=== PATIENT | male | born 1960 | race Caucasian/White ===

== ENCOUNTER 2023-11-21 09:27 | Outpatient (CLI) | payer OTHER ==
[2023-11-21 11:48] LABS: Anion Gap 14 mmol/L (10-20); BUN (Urea Nitrogen) 16 mg/dL (8.4-25.7); Calc. Creatinine Clearance 0 mL/min (70-130); Calcium 9.1 mg/dL (7.8-10.44); Carbon Dioxide 25 mmol/L (23-31); Chloride 95 mmol/L (98-107); Estimated GFR 58; Glucose 90 mg/dL (80-115); Potassium 5.3 mmol/L (3.5-5.1); Sodium 129 mmol/L (136-145)
== END 2023-11-21 09:28 | disposition home or self-care (01) ==
LOC: LABBT 09:27
PROVIDERS: ATTEND Neurological Surgery
DX: Z01.818 Encounter for other preprocedural examination (principal); M54.16 Radiculopathy, lumbar region
CPT/HCPCS: 80048; 93005; 93010

== ENCOUNTER 2023-11-22 09:22 | Day surgery (SDC) | payer OTHER ==
[2023-11-21 10:05] VITALS: BMI 25.0
[2023-11-22] MEDS ORDERED: CEFAZOLIN 2 GM VIAL ONE ×2 (10:04→13:52)
[2023-11-22] MEDS ORDERED: Sodium Chloride 0.9% 100 ML ONE ×2 (10:04→13:52)
[2023-11-22] MEDS ORDERED: Bupivacaine PF 0.5% 30 ML VIAL ONE (10:05)
[2023-11-22] MEDS ORDERED: Thrombin 5000 UNITS/5 ML VIAL ONE (10:05)
[2023-11-22] MEDS ORDERED: EPINEPHrine 1 MG/ML VIAL ONE (10:05)
[2023-11-22 10:42] LABS: Calcium 9.3 mg/dL (7.8-10.44); Chloride 99 mmol/L (98-107); Glucose 99 mg/dL (80-115); Potassium 4.7 mmol/L (3.5-5.1); Sodium 133 mmol/L (136-145)
[2023-11-22 10:43] LABS: Anion Gap 15 mmol/L (10-20); BUN (Urea Nitrogen) 17 mg/dL (8.4-25.7); Calc. Creatinine Clearance 66 mL/min (70-130); Carbon Dioxide 24 mmol/L (23-31); Estimated GFR 59
[2023-11-22] MEDS ORDERED: Ketorolac Tromethamine 30 MG (1 mL) VIAL ONE (11:40)
[2023-11-22] MEDS ORDERED: Ondansetron PF 4 MG/2 ML Vial ONE (11:40)
[2023-11-22] MEDS ORDERED: Dexamethasone 20 MG/5 ML VIAL ONE (11:40)
[2023-11-22] MEDS ORDERED: Rocuronium Bromide 10 MG/ML (10ML VIAL) ONE (11:42)
[2023-11-22] MEDS ORDERED: PROPOFOL 20 ML ONE (11:42)
[2023-11-22] MEDS ORDERED: Fentanyl 250 MCG/5 ML VIAL ONE (11:42)
[2023-11-22] MEDS ORDERED: Lidocaine 1% PF 5 ML VIAL ONE (11:42)
[2023-11-22] MEDS ORDERED: Glycopyrrolate 0.2 MG/ML 5 ML SYRINGE ONE (11:46)
[2023-11-22] MEDS ORDERED: NEOSTIGMINE 3 MG/3 ML SYR 3 MG/3 ML SYRINGE ONE (11:46)
[2023-11-22] MEDS ORDERED: Tamsulosin HCl 0.4 MG CAP ONE (12:19)
== END 2023-11-22 14:20 | disposition home or self-care (01) ==
LOC: SDC 09:22
PROVIDERS: ATTEND Neurological Surgery
PROC: 01NB0ZZ Release Lumbar Nerve, Open Approach (ICD-10-PCS; principal; 2023-11-22)
DX: M54.16 Radiculopathy, lumbar region (principal); I10 Essential (primary) hypertension; E78.5 Hyperlipidemia, unspecified; Z79.899 Other long term (current) drug therapy; Z88.8 Allergy status to other drugs, medicaments and biological substances
CPT/HCPCS: 80048; J0171; J0665; J1100; J1885; J2405; J2704; J3010; J3490